=== PATIENT | female | born 1990 ===

== ENCOUNTER 2020-08-02 09:45 | Inpatient (IN) | payer OTHER ==
[~2020-08-02] VITALS: Ht 152.4 cm; Wt 87.1 kg
== END 2020-08-11 12:26 | disposition home or self-care (01) | DRG 819 ==
LOC: LDR 08-07 07:56 → OB/GYN 08-07 09:45
PROVIDERS: ADMIT Obstetrics & Gynecology Maternal & Fetal Medicine; ATTEND Obstetrics & Gynecology Maternal & Fetal Medicine
PROC: BY49ZZZ Ultrasonography of First Trimester, Single Fetus (ICD-10-PCS; 2020-08-08)
PROC: 0UVC0ZZ Restriction of Cervix, Open Approach (ICD-10-PCS; principal; 2020-08-08 07:00)
PROC: BU46ZZZ Ultrasonography of Uterus (ICD-10-PCS; 2020-08-10)
DX: O34.31 Maternal care for cervical incompetence, first trimester (principal); Z3A.12 12 weeks gestation of pregnancy

== ENCOUNTER 2020-11-27 10:51 | Outpatient (CLI) | payer OTHER | END 2020-11-27 11:33 | disposition home or self-care (01) | LOC: NST 10:51 | PROVIDERS: ATTEND Obstetrics & Gynecology Maternal & Fetal Medicine | DX: O34.33 Maternal care for cervical incompetence, third trimester (principal) ==

== ENCOUNTER 2020-12-31 22:17 | Inpatient (IN) | payer OTHER ==
[~2020-12-31] VITALS: Ht 152.4 cm; Wt 91.6 kg
[2020-12-31] MEDS ORDERED: PRENATAL TABLE1 EAC1 PO (22:34)
[2020-12-31] MEDS ORDERED: NIFE60TA3 PO (22:34)
== END 2021-01-04 09:46 | disposition home or self-care (01) | DRG 832 ==
LOC: LDR 22:17 → OB/GYN 01-02 13:32
PROVIDERS: ADMIT Obstetrics & Gynecology; ATTEND Obstetrics & Gynecology
PROC: 4A1HXFZ Monitoring of Products of Conception, Cardiac Rhythm, External Approach (ICD-10-PCS; principal; 2020-12-31)
PROC: BY4FZZZ Ultrasonography of Third Trimester, Single Fetus (ICD-10-PCS; 2020-12-31)
PROC: BU4CZZZ Ultrasonography of Uterus and Ovaries (ICD-10-PCS; 2020-12-31)
DX: O34.33 Maternal care for cervical incompetence, third trimester (principal); O47.03 False labor before 37 completed weeks of gestation, third trimester; Z3A.33 33 weeks gestation of pregnancy; Z20.822 Contact with and (suspected) exposure to COVID-19

== ENCOUNTER 2021-01-07 02:05 | Inpatient (IN) | payer OTHER ==
[~2021-01-07] VITALS: Ht 152.4 cm; Wt 2.3 kg
[~2021-01-07 02:05] MED LIST: NIFE60TA3 PO; PRENATAL TABLE1 EAC1 PO
== END 2021-01-17 16:31 | disposition home or self-care (01) | DRG 786 ==
LOC: LDR 02:05 → OB/GYN 02:05
PROVIDERS: ADMIT Obstetrics & Gynecology; ATTEND Obstetrics & Gynecology
PROC: 4A1HXFZ Monitoring of Products of Conception, Cardiac Rhythm, External Approach (ICD-10-PCS; 2021-01-07)
PROC: 10D00Z1 Extraction of Products of Conception, Low, Open Approach (ICD-10-PCS; principal; 2021-01-14 15:00)
DX: O65.5 Obstructed labor due to abnormality of maternal pelvic organs (principal); O60.14X0 Preterm labor third trimester with preterm delivery third trimester, not applicable or unspecified; O34.33 Maternal care for cervical incompetence, third trimester; O34.211 Maternal care for low transverse scar from previous cesarean delivery; Z30.2 Encounter for sterilization; Z3A.34 34 weeks gestation of pregnancy; Z37.0 Single live birth; Z20.822 Contact with and (suspected) exposure to COVID-19